=== PATIENT | male | born 1985 | race Caucasian/White ===

== ENCOUNTER → 2017-01-03 | Outpatient (CLI) | payer OTHER ==
[~2017-01-03] VITALS: Ht 190.5 cm; Wt 74.8 kg
[~2017-01-03] MED LIST: ASPCH81X PO; CETI10TA10 PO; CITA10TA8 PO; ESOM20CA PO; MOXIFLOXACIN; MULTTAB58 PO; ONDA8TAB6 PO; RIZA5TAB10 PO
[2017-01-03 15:37] VITALS: BP 119/78; PULSE 89; Ht 190.5 cm; Wt 74.8 kg
== END | disposition home or self-care (01) ==
LOC: C.NEUR 14:40
PROVIDERS: ATTEND Physician Assistant Medical
DX: R53.83 Other fatigue (principal); R06.83 Snoring; R06.81 Apnea, not elsewhere classified

== ENCOUNTER → 2017-01-24 | Outpatient (CLI) | payer OTHER ==
--- NOTE | 2017-01-25 05:48 | PAP/PSG TECHNICIAN REPORT ---
[facility] Radio Television Announcer Polysomnogram Report Study name: None Report date: 01/25/2017 Study date: 01/24/2017 Referring Physician: Gail Odell PA-C Name: LISA WEST Interpreting Physician: Nabil Esparza M.D. Date of : 1985 Radio Television Announcer: CARMITA Anguiano. Sex: Male Age: 31 StudyType: PSG Weight: 165 lbs Height: 31 years, Height 6' 3" Neck Circum:14inches BMI: 20.62 Medications: Amoxicillin 500mg, ASA 81mg, Cyclobenzaprine HCl 5mg, Multi Vitamin/ Fluoride 0.25mg, Ondansetron HCl 8mg, Rizatriptan Benzoate 5mg, Zyrtec 10mg Patient History Study started on room air with no ETCO2 monitoring in room#8. 31 yr old male here tonight for a diagnostic psg. He has a history of cardiomyopathy and mitral valve prolapse/regurgitation status post repair March 2015 and SVT in February 2016s/p an implantable loop recorder. He snores, has witnessed apnea, fatigue, morning headaches and memory disturbance. His ESS=19/20. Neck circ=14inches. Parameters Monitored NPSG: E1-M2, E2-M1, Fp1-M2, Fp2-M1, F3-M2, F4-M2, F4-M1, C3-M2, C4-M2, C4-M1, O1-M2, O2-M2, O2-M1, T3-M2, T4-M1, P3-M2, P4-M1, CHIN1, CHIN2, HR, EKG, Legs, PFLOW, SNOR, FLOW, CFLOW, Tidal Volume, THOR, ABDO, SpO2, PLTH, CPRESS, ETCO2 Wave, ETCO2, pH Sleep Architecture Sleep Stages Time at Lights Off 9:53:31 PM STAGES Time (min.) TST (%) Time at Lights On 5:40:31 AM Wake 38.5 -- Total Recording Time (TRT) 467.00 min. N1 53.5 12 Total Sleep Period (TSP) 452.0 min. N2 207.0 48 Total Sleep Time (TST) 428.5min. N3 91.0 21 Awake Time 38.5 min. REM 77.0 18 Wake after Sleep Onset 23.5 min. Sleep Efficiency (SE) 92 % Sleep Onset Latency (ANTONI) 15.0 min. Number of Stage 1 Shifts None Awakenings 20 Stage Changes 135 Number of REM periods 19 REM 77.0 18 REM Latency 101.0 min. NREM 351.5 82 Body Position Analysis Supine Right Left Side Prone Vertical Total Sleep Time (min.) 199.6 128.3 124.2 252.56 0.0 0.0 Total Sleep Time (%) 41% 30% 29% 59 0% N/A% Total Sleep Time REM (min.) 45.3 12.5 19.2 None 0.0 0.0 Total Sleep Time NREM (min.) 130.6 115.8 105.0 None 0.0 0.0 Intermittent Wake (min.) 23.7 8.5 6.3 None 0.0 0.0 Total Sleep Period (%) 42% None None None None None Arousals Myoclonus (PLM) * Events Count Index Events Count Index Spontaneous 33 5 Events Awake (PLMW) 64 99.7 Respiratory 9 1.4 Events Asleep w/ Arousal (PLMA) 21 2.9 PLM 21 3 Events Asleep w/o Arousal (PLMS) 263 36.8 Snoring 17 2 Total Asleep 284 39.8 Total 80 11 Total 348 45 Respiratory Analysis * CA OA MA CH H RERA Total Count 0 1 0 0 10 3 11 Index 0.0 0.1 0.0 0 1.4 0 2.0 Mean Duration 0.0 23.5 0.0 0.00 25.2 26.4 25.3 Longest Duration 0.0 23.5 0.0 0.00 0.0 33.7 38.1 Respiratory Event Summary Total Supine ~Supine Right Left Prone REM NREM Apneas Count 1 1 0 0 0 N/A 0 1 Index 0.1 0 0 0.0 0.0 N/A 0 0 Hypopneas (4% Desat) Count 10 9 1 1 0 N/A 0 10 Index 1.4 3.1 0 0.5 0.0 N/A 0.0 1.7 Apneas & All Hypopneas Count 11 10 1 1 0 N/A 0 11 Index 1.5 3 0 0 0 N/A 0.0 1.9 Respiratory Events (Incident Handler+All Hyp+RERA) Count 11 11 3 3 0 N/A 0 11 Index 2.0 4 1 1.4 0.0 N/A 0.8 2.2 Respiratory Related Arousal Count 9 11 2 2 0 N/A 1 9 Index 1.4 3 0 1 0 N/A 1 2 Snoring Analysis Supine Right Left Prone REM NREM Total Snore duration 10.3 min Snores count 74 46 120 N/A 31 209 240 Snore mean duration 2.6 Sec Snores index 25 22 58 N/A 24.2 35.7 33.6 TST with snoring (%) 2.4% Desaturation Event Summary: Minimum %SpO2 Event Count Mean/Min/Max Duration(sec.) Desaturation Index % Time In Bed > 90 6 40.5 / 23.0 / 60.0 0.8 97.0 86 - 90 3 21.8 / 10.3 / 29.3 14.6 2.7 81 - 85 1 25.8 / 25.8 / 25.8 45.9 0.3 76 - 80 0 N/A 0.0 0.0 71 - 75 0 N/A 0.0 0.0 66 - 70 0 N/A 0.0 0.0 61 - 65 0 N/A 0.0 0.0 56 - 60 0 N/A 0.0 0.0 51 - 55 0 N/A 0.0 0.0 < 50 0 N/A 0.0 0.0 Total REM NREM Awake <50% 0.0 min. 0.0 min. 0.0 min. 0.0 min. 51 - 60% 0.0 min. 0.0 min. 0.0 min. 0.0 min. 61 - 70% 0.0 min. 0.0 min. 0.0 min. 0.0 min. 71 - 80% 0.1 min. 0.0 min. 0.1 min. 0.0 min. 81 - 90% 13.6 min. 1.9 min. 11.5 min. 0.3 min. 91 - 100% 446.9 min. 72.0 min. 338.6 min. 36.4 min. Average 95 95 95 95 Minimum SpO2 76 83 76 85 Desaturation Event Index 1.2 1.6 1.2 1.6 # Desat. Events below 89% 4 2 2 N/A Time(%) with Saturation below 89% 1.7 0.4 1.2 0.1 Time(min.) with Saturation below 89% 7.7 1.9 5.6 0.2 Time (mins) REM (mins) NREM (mins) % of TST SpO2 Below 90% 4 2 N2 2.0 SpO2 Below 88% 1 0 0 1 Heart Rate Analysis Min (bpm) Max (bpm) Average (bpm) Awake 61 127 73 NREM 57 127 74 REM 56 255 72 Overall 56 255 73 Supplemental O2 Values Minimum O2 level: None Value Start Time End Time Radio Television Announcer Comments Mr. West slept in the right, left and supine positions. No cardiac arrhythmia noted. PLM's were noted. No bruxism noted. Snoring was noted and scored as a 1 on a scale of 1 through 5. (0=no snoring, 5=snoring loud enough to be heard through a closed door or down the [address] way). He did not use the restroom during the night. He stated that he slept a little worse than usual. The final report will be interpreted and signed by a sleep physician. The completed physician report will then be placed in the patient medical record. Therapy (cm H2O) 0 TIB (min.) 467.0 TST (min.) 428.5 Sleep Onset (min.) 15.0 REM Onset From Sleep (min.) 101.0 Sleep Efficiency % 92 Wakefulness (%) 8 Wakefulness (min.) 38.5 NREM 1 (%) 12 NREM 1 (min.) 53.5 NREM 2 (%) 48 NREM 2 (min.) 207.0 NREM 3 (%) 21 NREM 3 (min.) 91.0 REM (%) 18 REM (min.) 77.0 # Arousals 80 Arousal Index 11 # Snore 240 Snore Index 33.6 AHI 1.5 AHI Supine 3 AHI Non-Supine 0 NREM AHI 1.9 REM AHI 0.0 RDI 2.0 # Obstructive Apnea 1 # Central Apnea 0 # Mixed Apnea 0 # Hypopneas 10 RERAs 3 Total Respiratory Events 14 Time Below SpO2 89% (min.) 7.4 Mean NREM SpO2 (%) 95 Mean REM SpO2 (%) 95 Mean Sleep SpO2 (%) 95 Min NREM SpO2 (%) 76 Min REM SpO2 (%) 83 Position Supine (min.) 199.6 Position Non-supine (min.) 252.6 LM Index Sleep 39.8 LM Index NREM 39.3 LM Index REM 42.1 Mean Heart Rate (bpm) 73 Min Heart Rate (bpm) 56
--- NOTE | 2017-01-25 11:18 | POLYSOMNOGRAPH REPORT ---
CLINICAL DATA: A 31-year-old male with BMI of 20.6, referred by Gail Odell, Dr. Trevino, dr Hamlet Rothman, and myself for a diagnostic sleep study. He has a history of cardiomyopathy, mitral valve prolapse and regurgitation status post repair and SVT. He snores and has witnessed apnea, fatigue, morning headaches, and memory disturbance. His [place] sleepiness score was 19/24. SLEEP ARCHITECTURE: Total sleep period was 452 minutes. Total sleep time was 428.5 minutes divided between 351.5 minutes of non-REM sleep and 77 minutes of REM sleep. Sleep onset latency was 15 minutes. REM latency was 101 minutes. Sleep efficiency was 92%. Wake after sleep onset was 23.5 minutes. Sleep consisted of stage N1 12%, stage N2 48%, stage N3 21%, and REM 18%. AROUSAL DATA: Eight arousals were recorded for an index of 11 per hour. PERIODIC LIMB MOVEMENTS DATA: Moderately elevated limb movements during sleep were noted. There were 284 limb movements during sleep were noted for an index of 39.8 per hour with arousal index of 2.9 per hour. RESPIRATORY DATA: There was no evidence of clinically significant sleep apnea seen. The AHI was 1.5. There was 1 obstructive apneic episode, 23.5 seconds in duration. There were 10 hypopneic episodes with mean duration of 25.2 seconds. OXIMETRY DATA: Transient nocturnal hypoxemia was seen. Oxygen kamar was 76% during non-REM sleep and mean saturation was 95%. Time below 88% was 1 minute. ELECTROCARDIOGRAM: Heart rates ranged from 57-127 beats per minute. No arrhythmias were noted. MULTIGRAPH OPERATOR'S COMMENTS: The patient slept in the right, left, and supine positions. Snoring was mild, rated 1 on a scale of 1-5. IMPRESSION: No evidence of clinically significant sleep apnea/hypopnea or nocturnal hypoxemia. The patient did have moderately elevated limb movements during sleep with only occasional arousal. RECOMMENDATIONS: The patient should continue to practice good sleep hygiene. There is no evidence that CPAP or an oral appliance would be of benefit. LIBORIO
== END | disposition home or self-care (01) ==
LOC: C.NEUR 21:00
PROVIDERS: ATTEND Physician Assistant Medical
DX: R53.83 Other fatigue (principal); R06.83 Snoring; R06.81 Apnea, not elsewhere classified

== ENCOUNTER → 2017-02-13 | Outpatient (CLI) | payer OTHER | END | disposition home or self-care (01) | LOC: C.LAB 08:14 | PROVIDERS: ATTEND Physician Assistant Medical | DX: G47.61 Periodic limb movement disorder (principal) ==

== ENCOUNTER 2025-02-12 18:50 | Inpatient (IN) ==
[2025-02-12] MEDS: KETOROLAC TROMETHAMINE 15 MG/ML VIAL IV STA (19:17)
[2025-02-12] MEDS: ONDANSETRON INJ 2 MG/ML 2 ML VIAL IV STA (19:17)
[2025-02-12] MEDS: SODIUM CHLORIDE 0.9% 500 ML IV STA (19:17)
[2025-02-12 19:28] LABS: Hematocrit (blood only) 47.3 % (42.0-52.0); Hemoglobin 15.5 g/dl (14.0-18.0); Immature Granulocytes # (auto) 0.09 K/uL (0.01-0.20); Immature Granulocytes % (auto) 0.7 %; Mean Corpuscular Hemoglobin 28.9 pg (25.0-34.0); Mean Corpuscular Volume 88.1 fL (80.0-100.0); Platelet Count 213 K/uL (130-400); RDW Standard Deviation 43.2 fL (36.4-46.3); Red Blood Count 5.37 M/uL (4.70-6.10); White Blood Count 12.39 K/ul (4.8-10.8)
[2025-02-12 19:45] LABS: Alanine Aminotransferase 58.0 U/L (7-52); Albumin Globulin Ratio 1.3 (0.9-2); Albumin Level 4.1 gm/dl (3.4-5.0); Alkaline Phosphatase 65.0 U/L (34-104); Anion Gap 5.0 (3-11); Bilirubin,Total 0.5 mg/dl (0.2-1.0); Blood Urea Nitrogen 16.0 mg/dl (6-23); Calcium 9.2 mg/dl (8.6-10.3); Carbon Dioxide 29.0 mmol/L (21-32); Chloride 106.0 mmol/L (98-107); Creatinine Clr Calc Pharmacy 87.4 ml/min; Globulin 3.1 gm/dl (2.5-4.0); Glucose 119.0 mg/dl (70-99(Fasting)); Potassium 4.5 mmol/L (3.5-5.1); Sodium 140.0 mmol/L (136-145); Total Protein 7.2 gm/dl (6.0-8.3)
--- NOTE | 2025-02-12 20:14 | Emergency Department Note ---
Impression & Plan Acute flank pain, Calculi, ureter ED Provider Note CHIEF COMPLAINT: Left flank pain HISTORY OF PRESENTING ILLNESS: Patient is a 39-year-old male who presents to the emergency department today for complaints of left flank pain. He reports onset of 2 days ago and was seen at urgent care yesterday and placed on Flomax and Augmentin. He has taken one dose of each. The pain has continued to worsen and is being seen. He does have a history of kidney stones and reports this feeling similar. He is able to void without any difficulties and denies any urgency, frequency, burning on urination. Patient denies chest pain, sob, breathing difficulties, abdominal pain, headache, fevers/chills, blood in stool or urine, any recent illness, or any recent travel. REVIEW OF SYSTEMS: See HPI for pertinent positives and pertinent negatives. ALLERGIES: See below MEDICATIONS: See below PAST MEDICAL HISTORY: See below PHYSICAL EXAM: VITALS: Vitals are noted on the nurse's note and reviewed by myself. GENERAL: Non toxic, in no acute distress, non-diaphoretic. SKIN: Capillary refill <2 sec. HEART: Regular rate and rhythm without murmurs gallops or rubs. LUNGS: Clear to auscultation bilaterally without wheezes, rales or rhonchi. No retractions or accessory muscle use. ABDOMEN: Positive bowel sounds x 4. Normal tympanic percussion. Soft, nontender to palpation. MUSCULOSKELETAL: No gross musculoskeletal defects. NEURO: Patient was alert and oriented. No focal neurological deficits. DIFFERENTIAL DIAGNOSIS: Differential diagnosis includes renal calculus, pyelonephritis, musculoskeletal pain, ruptured AAA, aortic dissection, diverticulitis, perforated viscus, bowel obstruction, biliary pathology, pancreatitis, PE, pneumonia, pneumothorax, trauma, herpes zoster, malignancy, among others. ED COURSE AND MEDICAL DECISION MAKING: HISTORY FROM INDEPENDENT HISTORIAN: History was provided by the patient. MONITOR: Continuous vehicle monitor technician: Order was placed for continuous vehicle monitor technician. Patient was placed on the vehicle monitor technician and continuous pulse ox. Patient was noted to be in normal sinus rhythm at an initial rate of 70 bpm per my interpretation. INTERPRETATION OF LABS: I interpreted the labs with full lab results as below in the lab section of this note. Laboratory results pertinent to the emergent complaint are discussed in the MDM section below. The patient was advised to follow up with their PCP and/or specialist(s) for further outpatient monitoring and management of any abnormal results. INTERPRETATION OF IMAGING: Imaging studies were interpreted by myself and read by radiology as per the imaging section of this note. The patient was advised to follow up with their PCP and/or specialist(s) for further outpatient management of any non-emergent abnormal findings. CHRONIC MEDICAL/SOCIAL CONDITIONS AFFECTING CARE: No social concerns were identified as barriers to patients care. ESCALATION OF CARE CONSIDERED: I considered admission on this patient due to uncontrolled pain in the outpatient setting. CONSULTATIONS: I consulted with Dr. Knapp from urology who will plan to see the patient tomorrow morning. I also consulted with Dr. Gupta for admission to the hospital. Patient was accepted. SUMMARY: I examined the patient for complaints of sided flank pain. A physical exam and history were performed. Nursing notes, EMR, and medication list were personally reviewed. CBC showed a mild leukocytosis with a white blood cell count of 12.39. No anemia or thrombocytopenia. CMP showed no emergent findings. Urinalysis was negative for leukocytes, nitrates, bacteria. CT of the abdomen and pelvis showed an obstructing calculus in the proximal left ureter with hydronephrosis and hydroureter her measuring 4.3 mm. Patient was given Toradol and Zofran with improvement in pain and discomfort. He was later given morphine 2 mg with improvement in pain and discomfort. I spoke with Dr. Knapp from urology who plan to see the patient in the morning and I also consulted with Dr. Gupta who accepts the patient for admission. The patient is to have close outpatient follow-up with a recheck of their symptoms. To return to the ER sooner for any significantly changing or worsening symptoms. The patient was educated on the treatment plan and the discharge instructions. The patient was discharged home in stable condition and verbalized understanding of all discharge instructions and treatment plan. DIAGNOSIS: Obstructing calculus, left flank pain TREATMENT PLAN/DISCHARGE INSTRUCTIONS: Admit to hospitalist services. The chart was completed utilizing [employer] Speech voice recognition software.Grammatical errors, random word insertions, pronoun errors, and incomplete sentences are an occasional consequence of this system due to software limitations, ambient noise, and hardware issues.Any formal questions or concerns about the content, text, or information contained within the body of this dictation should be directly addressed to the physician for clarification. Past Med/Surg History Problem List (Updated 02/12/25 @ 22:31 by MARGARET Toth) Calculi, ureter (Acute) Acute flank pain (Acute) Flank pain Calculi, ureter Scarlet fever Insomnia Cervical facet joint syndrome Myofascial pain Migraine Cervicogenic headache Cervicalgia Ectopic atrial rhythm Status post mitral valve repair Cardiomyopathy Mitral valve prolapse Status post placement of implantable loop recorder Medical History GERD (gastroesophageal reflux disease) Gastroparesis Social History Smoking Status: Never smoker Hx Alcohol Use: Yes Hx Substance Use: No Preferred Language: [place] Communication Ability: Effective Visual Impairment: No Limitations Hearing Ability: Normal Geothermal Powerplant Supervisor Required: No Beliefs That Will Affect Care: None Current Living Situation: Significant Other current occupational status: employed current occupation: works for [employer] Feels Safe at Home: Yes Assistive Devices: None Allergies Allergies Allergy/AdvReac Type Severity Reaction Status Date / Time house dust Allergy Severe asthma Verified 02/12/25 20:08 attack chlorhexidine Allergy Intermediate hives/blist Verified 02/12/25 20:08 ers/rash ragweed pollen Allergy Intermediate itchy Verified 02/12/25 20:08 eyes, sneezing, congestion, asthma metoclopramide AdvReac Intermediate Tremors-arms Verified 02/12/25 20:08 & hands Home Meds Home Medications Medication Instructions Recorded Confirmed cetirizine 10 mg capsule (Zyrtec) 10 mg PO DAILY PRN Congestion 12/10/20 02/12/25 esomeprazole magnesium 20 mg 20 mg PO DAILY 12/10/20 02/12/25 capsule,delayed release (Nexium) rizatriptan 5 mg tablet 5 mg PO DIRECTED PRN Migraine 12/10/20 02/12/25 Headache buspirone 5 mg tablet 7.5 mg PO BID 09/25/23 02/12/25 tadalafil 5 mg tablet 5 mg PO DAILY PRN Sexual Activity 09/25/23 02/12/25 adalimumab-adaz 40 mg/0.4 mL 40 mg subcut WK 02/12/25 02/12/25 subcutaneous pen injector (Hyrimoz(CF) Pen) amoxicillin 875 mg-potassium 1 tab PO BID 02/12/25 02/12/25 clavulanate 125 mg tablet dapsone 5 % topical gel 1 applic topical DAILY 02/12/25 02/12/25 dicyclomine 10 mg capsule 10 mg PO TID 02/12/25 02/12/25 finasteride 1 mg tablet 1 mg PO QAM 02/12/25 02/12/25 galcanezumab-gnlm 120 mg/mL 120 mg subcut MONTHLY 02/12/25 02/12/25 subcutaneous pen injector (Emgality Pen) methylphenidate HCl 30 mg biphasic 30 mg PO QAM 02/12/25 02/12/25 50-50 capsule,extended release multivitamin,tx-minerals 1 tab PO DAILY 02/12/25 02/12/25 prednisone 20 mg tablet 0 mg PO DAILY PRN CLUSTER HEADACHES 02/12/25 02/12/25 tamsulosin 0.4 mg capsule 0.4 mg PO QAM 02/12/25 02/12/25 verapamil 80 mg tablet 80 mg PO TID 02/12/25 02/12/25 Previous Rx's Medication Instructions Recorded aspirin 81 mg tablet,delayed 81 mg PO DAILY #90 tabs 02/25/19 release (Adult Low Dose Aspirin) ondansetron HCl 8 mg tablet 8 mg PO TID PRN nausea and 02/25/19 vomiting #10 tabs Results & Data (ED) Vital Signs Vital Signs - 24 hr 02/12/25 19:05 02/12/25 19:13 02/12/25 21:00 Temperature 36.6 C Temperature Source Temporal Artery Scan Pulse Rate 70 Respiratory Rate 18 16 Respiratory Effort / Characteristics Non-Labored Spontaneous Respiratory Depth Normal Blood Pressure 151/92 H Blood Pressure [Right Arm] 150/87 H Blood Pressure Mean 111 Blood Pressure Mean [Right Arm] 108 Pulse Oximetry 96 98 Oxygen Delivery Method Room Air Room Air Sepsis Recent Fever Within 48 Hours No Sepsis New/Unexplained Change in Mental Status No Sepsis Action Taken by Nursing No Action Required Laboratory Data 02/12/25 19:15 02/12/25 19:15 Lab Results 02/12/25 02/12/25 Range/Units 19:15 20:54 WBC 12.39 H (4.8-10.8) K/ul RBC 5.37 (4.70-6.10) M/uL Hgb 15.5 (14.0-18.0) g/dl Hct 47.3 (42.0-52.0) % MCV 88.1 (80.0-100.0) fL MCH 28.9 (25.0-34.0) pg MCHC 32.8 (32.0-36.0) g/dL RDW Std Deviation 43.2 (36.4-46.3) fL RDW Coeff of Marichuy 13.4 (11.5-14.5) % Plt Count 213 (130-400) K/uL MPV 10.2 (9.4-12.4) fL Immature Gran % (Auto) 0.7 % Neut % (Auto) 79.5 % Lymph % (Auto) 13.4 % [place] % (Auto) 6.2 % Eos % (Auto) 0.0 % Baso % (Auto) 0.2 % Neut # (Auto) 9.85 H (1.40-6.50) K/uL Lymph # (Auto) 1.66 (1.20-3.40) K/uL [place] # (Auto) 0.77 H (0.11-0.59) K/uL Eos # (Auto) 0.00 (0.00-0.50) K/uL Baso # (Auto) 0.02 (0.00-0.20) K/uL Immature Gran # (Auto) 0.09 (0.01-0.20) K/uL Sodium 140 (136-145) mmol/L Potassium 4.5 (3.5-5.1) mmol/L Chloride 106 (98-107) mmol/L Carbon Dioxide 29 (21-32) mmol/L Anion Gap 5 (3-11) BUN 16 (6-23) mg/dl Creatinine 1.38 (0.6-1.4) mg/dl Est Cr Clr Drug Dosing 87.4 ml/min eGFR 66.30 BUN/Creatinine Ratio 11.6 (10-20) Glucose 119 H (70-99(Fasting)) mg/dl Calcium 9.2 (8.6-10.3) mg/dl Total Bilirubin 0.5 (0.2-1.0) mg/dl AST 37 (13-39) U/L ALT 58 H (7-52) U/L Alkaline Phosphatase 65 (34-104) U/L Total Protein 7.2 (6.0-8.3) gm/dl Albumin 4.1 (3.4-5.0) gm/dl Globulin 3.1 (2.5-4.0) gm/dl Albumin/Globulin Ratio 1.3 (0.9-2) Urine Color Yellow Urine Appearance Clear (Clear) Urine pH 6.0 (4.5-7.5) Ur Specific [place] 1.041 H (1.000-1.030) Urine Protein 1+ H (Negative) Urine Glucose (UA) Negative (Negative) Urine Ketones Trace H (Negative) Urine Blood 3+ H (Negative) Urine Nitrite Negative (Negative) Urine Bilirubin Negative (Negative) Urine Urobilinogen Positive H (Negative) Ur Leukocyte Esterase Negative (Negative) Urine WBC (Auto) 0-5 (0-5) /hpf Urine RBC (Auto) >20 H (0-2) /hpf U Hyaline Cast (Auto) 0-2 (0-2) /lpf U Epithel Cells (Auto) 0-2 (0-2) /hpf Urine Bacteria (Auto) None Seen (None Seen) Urine Comment Administered Medications Discontinued Medications Sodium Chloride (Nss) 500 mls @ 999 mls/hr IV .Q31M STA Stop: 02/12/25 19:43 Last Admin: 02/12/25 19:17 Dose: 999 mls/hr Documented By: URI Ioversol (Optiray 320 100ml) 93 ml IV ONCE ONE Stop: 02/12/25 20:41 Last Admin: 02/12/25 20:40 Dose: 93 ml Documented By: AUGUSTUS Ketorolac Tromethamine (Ketorolac Tromethamine 15 Mg/Ml Vial) 15 mg IV ONE STA Stop: 02/12/25 19:14 Last Admin: 02/12/25 19:17 Dose: 15 mg Documented By: URI Ondansetron HCl (Ondansetron Inj 2 Mg/Ml 2 Ml Vial) 4 mg IV NOW STA Stop: 02/12/25 19:14 Last Admin: 02/12/25 19:17 Dose: 4 mg Documented By: URI Imaging Data Radiologist's Impression: Abdomen/Pelvis CT 02/12/25 20:02 Exam(s): CT ABDOMEN + PELVIS With Contrast IV Amt: 93cc optiray 320 EXAM: CT Abdomen and Pelvis With Intravenous Contrast CLINICAL HISTORY: left flank pain. TECHNIQUE: Axial computed tomography images of the abdomen and pelvis with intravenous contrast. CTDI is 14.85 mGy and DLP is 754.35 mGy-cm. Automated exposure control was utilized for the study. A dose lowering technique was utilized adhering to the principles of ALARA. CONTRAST: Patient received 93cc optiray 320 of IV contrast COMPARISON: 05/14/2008 FINDINGS: Lung bases: Unremarkable. No mass. No consolidation. ABDOMEN: Liver: Unremarkable. No mass. Gallbladder and bile ducts: Unremarkable. No calcified stones. No ductal dilation. Pancreas: Unremarkable. No mass. No ductal dilation. Spleen: Unremarkable. No splenomegaly. Adrenals: Unremarkable. No mass. Kidneys and ureters: 1.7 x 1.7 cm cyst upper pole of the left kidney. Punctate nonobstructing calculus of the left kidney. No obstructive uropathy. Mild left hydronephrosis and hydroureter to the level of a 4 x 4.3 mm obstructing calculus in the proximal left ureter. No other calculus. Right kidney and ureter are normal appearance. Stomach and bowel: No obstruction or ileus. Moderate stool throughout the colon. No evidence for diverticulitis. PELVIS: Appendix: No findings to suggest acute appendicitis. Bladder: Unremarkable. No mass. Reproductive: Unremarkable as visualized. ABDOMEN and PELVIS: Intraperitoneal space: No free air. No free fluid. Bones/joints: No acute fracture. Soft tissues: Unremarkable. Vasculature: Unremarkable. No abdominal aortic aneurysm. Lymph nodes: Unremarkable. No enlarged lymph nodes. IMPRESSION: Obstructing calculus proximal left ureter with associated left hydronephrosis and hydroureter. Electronically signed by: Ramses Sapp M.D. 02/12/25 21:51 PM Discharge Plan Visit Data Chief Complaint: Flank Pain Stated Complaint: LT FLANK PAIN VOMITING KIDNEY STONE ED Provider: Bhupendra Hutson ED Midlevel Provider: Iman Montes De Oca Discharge Problem: Acute flank pain, Calculi, ureter Patient Disposition: Admitted As Inpatient Forms Stand Alone Forms: [facility] Prescriptions Prescriptions: No Action buspirone 5 mg tablet 7.5 mg PO BID tadalafil 5 mg tablet 5 mg PO DAILY PRN (Reason: Sexual Activity) rizatriptan 5 mg tablet 5 mg PO DIRECTED PRN (Reason: Migraine Headache) Rx Instructions: do not exceed 6 doses per 24 hrs esomeprazole magnesium [Nexium] 20 mg capsule,delayed release(DR/EC) 20 mg PO DAILY Zyrtec 10 mg capsule 10 mg PO DAILY PRN (Reason: Congestion) aspirin [Adult Low Dose Aspirin] 81 mg tablet,delayed release (DR/EC) 81 mg PO DAILY Qty: 90 3RF ondansetron HCl 8 mg tablet 8 mg PO TID PRN (Reason: nausea and vomiting) Qty: 10 0RF prednisone 20 mg Tablet 0 mg PO DAILY PRN (Reason: CLUSTER HEADACHES) Rx Instructions: TAKE 60 MG AT ONSET OF HEADACHE, THEN 40 MG X 2 DAYS, THEN 20 MG X 2 DAYS. STARTED 02/11/25 tamsulosin 0.4 mg capsule 0.4 mg PO QAM verapamil 80 mg tablet 80 mg PO TID dicyclomine 10 mg capsule 10 mg PO TID finasteride 1 mg tablet 1 mg PO QAM amoxicillin-pot clavulanate 875-125 mg tablet 1 tab PO BID Rx Instructions: STARTED 02/11/25 FOR 10 DAYS Therapeutic-M Tablet 1 tab PO DAILY methylphenidate HCl 30 mg capsule,ER biphasic 50-50 30 mg PO QAM dapsone 5 % gel 1 applic TOPICAL DAILY Emgality Pen 120 mg/mL pen injector 120 mg SUBCUT MONTHLY Rx Instructions: TAKES ON THE OF THE MONTH. adalimumab-adaz [Hyrimoz(CF) Pen] 40 mg/0.4 mL pen injector 40 mg SUBCUT WK Rx Instructions: SUNDAYS Referrals Referrals: Carlos Trevino DO [Primary Care Provider] -
[2025-02-12] MEDS: OPTIRAY 320 100ml IV ONE (20:40)
[2025-02-12 21:51] LABS: Appearance Urine Clear (Clear); Bacteria Urine Automated None Seen (None Seen); Cast Urine Automated 0-2 /lpf (0-2); Epithelial Cell Urine Auto 0-2 /hpf (0-2); Glucose Urine UA Negative (Negative); RBC Urine Automated >20 /hpf (0-2); WBC Urine Automated 0-5 /hpf (0-5)
--- NOTE | 2025-02-12 21:52 | CT Scan Report ---
Exam(s): CT ABDOMEN + PELVIS With Contrast IV Amt: 93cc optiray 320 EXAM: CT Abdomen and Pelvis With Intravenous Contrast CLINICAL HISTORY: left flank pain. TECHNIQUE: Axial computed tomography images of the abdomen and pelvis with intravenous contrast. CTDI is 14.85 mGy and DLP is 754.35 mGy-cm. Automated exposure control was utilized for the study. A dose lowering technique was utilized adhering to the principles of ALARA. CONTRAST: Patient received 93cc optiray 320 of IV contrast COMPARISON: 05/14/2008 FINDINGS: Lung bases: Unremarkable. No mass. No consolidation. ABDOMEN: Liver: Unremarkable. No mass. Gallbladder and bile ducts: Unremarkable. No calcified stones. No ductal dilation. Pancreas: Unremarkable. No mass. No ductal dilation. Spleen: Unremarkable. No splenomegaly. Adrenals: Unremarkable. No mass. Kidneys and ureters: 1.7 x 1.7 cm cyst upper pole of the left kidney. Punctate nonobstructing calculus of the left kidney. No obstructive uropathy. Mild left hydronephrosis and hydroureter to the level of a 4 x 4.3 mm obstructing calculus in the proximal left ureter. No other calculus. Right kidney and ureter are normal appearance. Stomach and bowel: No obstruction or ileus. Moderate stool throughout the colon. No evidence for diverticulitis. PELVIS: Appendix: No findings to suggest acute appendicitis. Bladder: Unremarkable. No mass. Reproductive: Unremarkable as visualized. ABDOMEN and PELVIS: Intraperitoneal space: No free air. No free fluid. Bones/joints: No acute fracture. Soft tissues: Unremarkable. Vasculature: Unremarkable. No abdominal aortic aneurysm. Lymph nodes: Unremarkable. No enlarged lymph nodes. IMPRESSION: Obstructing calculus proximal left ureter with associated left hydronephrosis and hydroureter. Electronically signed by: Ramses Sapp M.D. 02/12/25 21:51 PM
[2025-02-12] MEDS: MoRPHine SULFATE 2 MG/ML CARP IV STA (22:34)
[2025-02-13] MEDS ORDERED: ONDANSETRON INJ 2 MG/ML 2 ML VIAL IV PRN ×2 (00:25→15:38)
[2025-02-13] MEDS ORDERED: RIZATRIPTAN BENZOATE 10 MG TAB PO PRN (00:25)
[2025-02-13] MEDS ORDERED: POLYETHYLENE (MIRALAX) 17 GM PACK PO PRN (00:25)
[2025-02-13] MEDS: SODIUM CHLORIDE 0.9% 1,000 ML IV SCH (00:55)
[2025-02-13] MEDS: HYDROmorphone INJ 0.5 MG/0.5 ML SYR IV PRN ×2 (00:56→18:47)
--- NOTE | 2025-02-13 01:40 | History & Physical Report ---
Date of Service February 12, 2025 Assessment & Plan (1) Left renal stone: Plan: 39-year-old male with past medical history significant for deviated nasal septum, history of mitral valve prolapse, gastroparesis, GERD, migraine, chronic cluster headaches, anxiety presents with left renal colic. Patient noticed left flank pain since last Monday. Pain is radiating to his groin region. Patient was seen by urgent care on 02/11/2025 and was given prophylactic antibiotics and Flomax and also renal ultrasound was done. Augmentin was given for sinusitis. Renal ultrasound was done and seems showed kidney stones and advised to follow- up with PCP. As the pain was not getting better and today it was 10/10 in severity associated with nausea which prompted him to come to the ER. Denies any fevers. Having hematuria. Has some discomfort while micturating. Normal bowel movements. Denies any chest pain or shortness of breath. No headache. No runny nose or sore throat. Currently resting comfortably and hemodynamically stable. Left renal calculi Ongoing left flank pain CT abdomen pelvis showing obstructing calculus proximal left ureter with associated left hydronephrosis and hydroureter UA negative for UTI Hemodynamically stable Pain control IV fluids N.p.o. Flomax Urine straining Urology consult in a.m. History of migraines History of cluster headaches Continue home medications History of hidradenitis suppurativa On adalimumab GERD on omeprazole History of mitral valve prolapse S/p repair On aspirin Anxiety On buspirone DVT prophylaxis SCDs Disposition Medical floor Full code. History of Present Illness Chief Complaint: Left renal colic Primary Care Provider: Carlos Trevino DO 39-year-old male with past medical history significant for deviated nasal septum, history of mitral valve prolapse, gastroparesis, GERD, migraine, chronic cluster headaches, anxiety presents with left renal colic. Patient noticed left flank pain since last Monday. Pain is radiating to his groin region. Patient was seen by urgent care on 02/11/2025 and was given prophylactic antibiotics and Flomax and also renal ultrasound was done. Augmentin was given for sinusitis. Renal ultrasound was done and seems showed kidney stones and advised to follow- up with PCP. As the pain was not getting better and today it was 10/10 in severity associated with nausea which prompted him to come to the ER. Denies any fevers. Having hematuria. Has some discomfort while micturating. Normal bowel movements. Denies any chest pain or shortness of breath. No headache. No runny nose or sore throat. Currently resting comfortably and hemodynamically stable. Past medical history. As mentioned above. Past surgical history. Colonoscopy with biopsy. EGD. Appendectomy. Repair of nasal stenosis. Revision of spermatic cord veins. Social history. No smoking. Alcohol occasionally. No drug use. Family history. Father has asthma. Hypertension. Mother has colitis. Migraine. Allergies Allergy/AdvReac Type Severity Reaction Status Date / Time house dust Allergy Severe asthma Verified 02/12/25 20:08 attack chlorhexidine Allergy Intermediate hives/blist Verified 02/12/25 20:08 ers/rash ragweed pollen Allergy Intermediate itchy Verified 02/12/25 20:08 eyes, sneezing, congestion, asthma metoclopramide AdvReac Intermediate Tremors-arms Verified 02/12/25 20:08 & hands Home Medications Medication Instructions Recorded Confirmed Type aspirin 81 mg tablet,delayed 81 mg PO DAILY #90 tabs 02/25/19 02/12/25 Rx release (Adult Low Dose Aspirin) ondansetron HCl 8 mg tablet 8 mg PO TID PRN nausea and 02/25/19 02/12/25 Rx vomiting #10 tabs cetirizine 10 mg capsule (Zyrtec) 10 mg PO DAILY PRN Congestion 12/10/20 02/12/25 History esomeprazole magnesium 20 mg 20 mg PO DAILY 12/10/20 02/12/25 History capsule,delayed release (Nexium) rizatriptan 5 mg tablet 5 mg PO DIRECTED PRN Migraine 12/10/20 02/12/25 History Headache buspirone 5 mg tablet 7.5 mg PO BID 09/25/23 02/12/25 History tadalafil 5 mg tablet 5 mg PO DAILY PRN Sexual Activity 09/25/23 02/12/25 Hist ory adalimumab-adaz 40 mg/0.4 mL 40 mg subcut WK 02/12/25 02/12/25 History subcutaneous pen injector (Hyrimoz(CF) Pen) amoxicillin 875 mg-potassium 1 tab PO BID 02/12/25 02/12/25 History clavulanate 125 mg tablet dapsone 5 % topical gel 1 applic topical DAILY 02/12/25 02/12/25 History dicyclomine 10 mg capsule 10 mg PO TID 02/12/25 02/12/25 History finasteride 1 mg tablet 1 mg PO QAM 02/12/25 02/12/25 History galcanezumab-gnlm 120 mg/mL 120 mg subcut MONTHLY 02/12/25 02/12/25 History subcutaneous pen injector (Emgality Pen) methylphenidate HCl 30 mg biphasic 30 mg PO QAM 02/12/25 02/12/25 History 50-50 capsule,extended release multivitamin,tx-minerals 1 tab PO DAILY 02/12/25 02/12/25 History prednisone 20 mg tablet 0 mg PO DAILY PRN CLUSTER HEADACHES 02/12/25 02/12/25 History tamsulosin 0.4 mg capsule 0.4 mg PO QAM 02/12/25 02/12/25 History verapamil 80 mg tablet 80 mg PO TID 02/12/25 02/12/25 History Past Med/Surg History Problem List (Updated 02/13/25 @ 01:42 by Fran Whitaker MD) Left renal stone Calculi, ureter (Acute) Acute flank pain (Acute) Flank pain Calculi, ureter Scarlet fever Insomnia Cervical facet joint syndrome Myofascial pain Migraine Cervicogenic headache Cervicalgia Ectopic atrial rhythm Status post mitral valve repair Cardiomyopathy Mitral valve prolapse Status post placement of implantable loop recorder Medical History GERD (gastroesophageal reflux disease) Gastroparesis Social History Smoking Status: Never smoker Second Hand Exposure: No; Do You Dip or Chew Tobacco: No; Tobacco Cessation Education Requested by Patient: No Hx Alcohol Use: No Hx Substance Use: No Preferred Language: Tamaz[place] Communication Ability: Effective Visual Impairment: No Limitations Hearing Ability: Normal Second Hand Required: No Beliefs That Will Affect Care: None Current Living Situation: Alone current occupational status: employed current occupation: works for [employer] Other Information That Helps Us Care for You: No Feels Safe at Home: Yes Safety Concerns: Feels Safe At This Time Assistive Devices: None Review of Systems Review of Systems: All systems reviewed & are unremarkable except as noted in HPI & below Physical Exam Physical Exam: General- Not in distress Head- atraumatic Eyes- PERRL. ENT- oropharynx clear Neck- supple, no JVD. Lungs- clear to auscultation no wheezing or crackles Heart- regular rhythm; no murmur, no gallop. Abdomen- normal bowel sounds, soft, nontender, no distension Extremities- no pretibial edema, no erythema seen Neuro- alert, oriented PERRL, no facial palsy; no dysarthria; moves extremities Results & Data Results & Data Vital Signs (Past 12 Hours) Vital Signs Temp Pulse Resp BP BP Pulse Ox O2 Del Method 02/12/25 21:00 16 150/87 H 98 02/12/25 19:13 Room Air 02/12/25 19:05 36.6 C 70 18 151/92 H 96 Room Air Diagnostic Findings Laboratory Results WBC 12.39 K/ul (4.8-10.8) H 02/12/25 19:15 RBC 5.37 M/uL (4.70-6.10) 02/12/25 19:15 Hgb 15.5 g/dl (14.0-18.0) 02/12/25 19:15 Hct 47.3 % (42.0-52.0) 02/12/25 19:15 MCV 88.1 fL (80.0-100.0) 02/12/25 19:15 MCH 28.9 pg (25.0-34.0) 02/12/25 19:15 MCHC 32.8 g/dL (32.0-36.0) 02/12/25 19:15 RDW Std Deviation 43.2 fL (36.4-46.3) 02/12/25 19:15 RDW Coeff of [place] 13.4 % (11.5-14.5) 02/12/25 19:15 Plt Count 213 K/uL (130-400) 02/12/25 19:15 MPV 10.2 fL (9.4-12.4) 02/12/25 19:15 Immature Gran % (Auto) 0.7 % 02/12/25 19:15 Neut % (Auto) 79.5 % 02/12/25 19:15 Lymph % (Auto) 13.4 % 02/12/25 19:15 [place] % (Auto) 6.2 % 02/12/25 19:15 Eos % (Auto) 0.0 % 02/12/25 19:15 Baso % (Auto) 0.2 % 02/12/25 19:15 Neut # (Auto) 9.85 K/uL (1.40-6.50) H 02/12/25 19:15 Lymph # (Auto) 1.66 K/uL (1.20-3.40) 02/12/25 19:15 [place] # (Auto) 0.77 K/uL (0.11-0.59) H 02/12/25 19:15 Eos # (Auto) 0.00 K/uL (0.00-0.50) 02/12/25 19:15 Baso # (Auto) 0.02 K/uL (0.00-0.20) 02/12/25 19:15 Immature Gran # (Auto) 0.09 K/uL (0.01-0.20) 02/12/25 19:15 Sodium 140 mmol/L (136-145) 02/12/25 19:15 Potassium 4.5 mmol/L (3.5-5.1) 02/12/25 19:15 Chloride 106 mmol/L (98-107) 02/12/25 19:15 Carbon Dioxide 29 mmol/L (21-32) 02/12/25 19:15 Anion Gap 5 (3-11) 02/12/25 19:15 BUN 16 mg/dl (6-23) 02/12/25 19:15 Creatinine 1.38 mg/dl (0.6-1.4) 02/12/25 19:15 Est Cr Clr Drug Dosing 87.4 ml/min 02/12/25 19:15 eGFR 66.30 02/12/25 19:15 BUN/Creatinine Ratio 11.6 (10-20) 02/12/25 19:15 Glucose 119 mg/dl (70-99(Fasting)) H 02/12/25 19:15 Calcium 9.2 mg/dl (8.6-10.3) 02/12/25 19:15 Total Bilirubin 0.5 mg/dl (0.2-1.0) 02/12/25 19:15 AST 37 U/L (13-39) 02/12/25 19:15 ALT 58 U/L (7-52) H 02/12/25 19:15 Alkaline Phosphatase 65 U/L (34-104) 02/12/25 19:15 Total Protein 7.2 gm/dl (6.0-8.3) 02/12/25 19:15 Albumin 4.1 gm/dl (3.4-5.0) 02/12/25 19:15 Globulin 3.1 gm/dl (2.5-4.0) 02/12/25 19:15 Albumin/Globulin Ratio 1.3 (0.9-2) 02/12/25 19:15 Urine Color Yellow 02/12/25 20:54 Urine Appearance Clear (Clear) 02/12/25 20:54 Urine pH 6.0 (4.5-7.5) 02/12/25 20:54 Ur Specific [place] 1.041 (1.000-1.030) H 02/12/25 20:54 Urine Protein 1+ (Negative) H 02/12/25 20:54 Urine Glucose (UA) Negative (Negative) 02/12/25: Urine Ketones Trace (Negative) H 02/12/25 20:54 Urine Blood 3+ (Negative) H 02/12/25 20:54 Urine Nitrite Negative (Negative) 02/12/25: Urine Bilirubin Negative (Negative) 02/12/25 20:54 Urine Urobilinogen Positive (Negative) H 02/12/25 20:54 Ur Leukocyte Esterase Negative (Negative) 02/12/25 20:54 Urine WBC (Auto) 0-5 /hpf (0-5) 02/12/25:54 Urine RBC (Auto) >20 /hpf (0-2) H 02/12/25 20:54 U Hyaline Cast (Auto) 0-2 /lpf (0-2) 02/12/25 20:54 U Epithel Cells (Auto) 0-2 /hpf (0-2) 02/12/25 20:54 Urine Bacteria (Auto) None Seen (None Seen) 02/12/25 20:54 Urine Comment 02/12/25 20:54 Impressions Abdomen/Pelvis CT 02/12/25 20:02 Exam(s): CT ABDOMEN + PELVIS With Contrast IV Amt: 93cc optiray 320 EXAM: CT Abdomen and Pelvis With Intravenous Contrast CLINICAL HISTORY: left flank pain. TECHNIQUE: Axial computed tomography images of the abdomen and pelvis with intravenous contrast. CTDI is 14.85 mGy and DLP is 754.35 mGy-cm. Automated exposure control was utilized for the study. A dose lowering technique was utilized adhering to the principles of ALARA. CONTRAST: Patient received 93cc optiray 320 of IV contrast COMPARISON: 05/14/2008 FINDINGS: Lung bases: Unremarkable. No mass. No consolidation. ABDOMEN: Liver: Unremarkable. No mass. Gallbladder and bile ducts: Unremarkable. No calcified stones. No ductal dilation. Pancreas: Unremarkable. No mass. No ductal dilation. Spleen: Unremarkable. No splenomegaly. Adrenals: Unremarkable. No mass. Kidneys and ureters: 1.7 x 1.7 cm cyst upper pole of the left kidney. Punctate nonobstructing calculus of the left kidney. No obstructive uropathy. Mild left hydronephrosis and hydroureter to the level of a 4 x 4.3 mm obstructing calculus in the proximal left ureter. No other calculus. Right kidney and ureter are normal appearance. Stomach and bowel: No obstruction or ileus. Moderate stool throughout the colon. No evidence for diverticulitis. PELVIS: Appendix: No findings to suggest acute appendicitis. Bladder: Unremarkable. No mass. Reproductive: Unremarkable as visualized. ABDOMEN and PELVIS: Intraperitoneal space: No free air. No free fluid. Bones/joints: No acute fracture. Soft tissues: Unremarkable. Vasculature: Unremarkable. No abdominal aortic aneurysm. Lymph nodes: Unremarkable. No enlarged lymph nodes. IMPRESSION: Obstructing calculus proximal left ureter with associated left hydronephrosis and hydroureter. Electronically signed by: Ramses Sapp M.D. 02/12/25 21:51 PM Code Status & VTE Plan VTE Prophylaxis Plan VTE Prophylaxis will be ordered: Yes
--- NOTE | 2025-02-13 07:19 | Urology Consultation ---
Date of Consultation February 13, 2025 Assessment & Plan (1) Calculi, ureter: Left proximal ureteral calculus with associated hydronephrosis and renal colic Nontoxic but significant pain Discussed different options with him He has previously had intervention but is been several years Will plan for cystoscopy left ureteral stent unless he has substantial improvement or passage of the stone later this morning History of Present Illness Attending Physician: Zoie Hoffman MD History of Present Illness 39-year-old gentleman with a history of kidney stones but no operations in the past 20 years Presents after 2 days of severe left flank pain Initially in urgent care visit followed by an ER visit CT showing a proximal/mid left ureteral calculus with associated hydronephrosis He does not exhibit signs of infection and today his pain is a bit better but still present CT personally reviewed and interpreted White blood cell count 12.3 Creatinine 1.38 Allergies Allergy/AdvReac Type Severity Reaction Status Date / Time house dust Allergy Severe asthma Verified 02/12/25 20:08 attack chlorhexidine Allergy Intermediate hives/blist Verified 02/12/25 20:08 ers/rash ragweed pollen Allergy Intermediate itchy Verified 02/12/25 20:08 eyes, sneezing, congestion, asthma metoclopramide AdvReac Intermediate Tremors-arms Verified 02/12/25 20:08 & hands Home Medications Medication Instructions Recorded Confirmed Type aspirin 81 mg tablet,delayed 81 mg PO DAILY #90 tabs 02/25/19 02/12/25 Rx release (Adult Low Dose Aspirin) ondansetron HCl 8 mg tablet 8 mg PO TID PRN nausea and 02/25/19 02/12/25 Rx vomiting #10 tabs cetirizine 10 mg capsule (Zyrtec) 10 mg PO DAILY PRN Congestion 12/10/20 02/12/25 History esomeprazole magnesium 20 mg 20 mg PO DAILY 12/10/20 02/12/25 History capsule,delayed release (Nexium) rizatriptan 5 mg tablet 5 mg PO DIRECTED PRN Migraine 12/10/20 02/12/25 History Headache buspirone 5 mg tablet 7.5 mg PO BID 09/25/23 02/12/25 History tadalafil 5 mg tablet 5 mg PO DAILY PRN Sexual Activity 09/25/23 02/12/25 History adalimumab-adaz 40 mg/0.4 mL 40 mg subcut WK 02/12/25 02/12/25 History subcutaneous pen injector (Hyrimoz(CF) Pen) amoxicillin 875 mg-potassium 1 tab PO BID 02/12/25 02/12/25 History clavulanate 125 mg tablet dapsone 5 % topical gel 1 applic topical DAILY 02/12/25 02/12/25 History dicyclomine 10 mg capsule 10 mg PO TID 02/12/25 02/12/25 History finasteride 1 mg tablet 1 mg PO QAM 02/12/25 02/12/25 History galcanezumab-gnlm 120 mg/mL 120 mg subcut MONTHLY 02/12/25 02/12/25 History subcutaneous pen injector (Emgality Pen) methylphenidate HCl 30 mg biphasic 30 mg PO QAM 02/12/25 02/12/25 History 50-50 capsule,extended release multivitamin,tx-minerals 1 tab PO DAILY 02/12/25 02/12/25 History prednisone 20 mg tablet 0 mg PO DAILY PRN CLUSTER HEADACHES 02/12/25 02/12/25 History tamsulosin 0.4 mg capsule 0.4 mg PO QAM 02/12/25 02/12/25 History verapamil 80 mg tablet 80 mg PO TID 02/12/25 02/12/25 History Patient History Medical History GERD (gastroesophageal reflux disease) Gastroparesis Social History Smoking Status: Never smoker Second Hand Exposure: No; Do You Dip or Chew Tobacco: No; Tobacco Cessation Education Requested by Patient: No Hx Alcohol Use: No Hx Substance Use: No Preferred Language: [place]otho Communication Ability: Effective Visual Impairment: No Limitations Hearing Ability: Normal 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 Beliefs That Will Affect Care: None Current Living Situation: Alone current occupational status: employed current occupation: works for [employer] Other Information That Helps Us Care for You: No Feels Safe at Home: Yes Safety Concerns: Feels Safe At This Time Assistive Devices: None Physical Exam Constitutional: well developed and well nourished Neck: neck nontender Respiratory: normal respiratory effort; no respiratory distress and does not use accessory muscles Cardiovascular: Rate/Rhythm: regular rate Vessels: radial pulses present Extremities: no edema Gastrointestinal (Abdomen): Inspection/Auscultation: abdomen normal to inspection Percussion/Palpation: abdomen soft; abdomen nontender and no guarding Musculoskeletal: Head/Neck/Chest: normocephalic and head atraumatic Extremities: extremities normal to inspection Skin: no rashes and no lesions Trauma: no evidence of skin trauma Neurologic: awake; not obtunded Speech / Cognition: normal speech Motor/Sensory: no tremor Psychiatric: Orientation: alert and oriented x 3 Genitourinary: no CVA tenderness Lymphatic: no lymphadenopathy Results & Data Vital Signs (Past 12 Hours) Vital Signs Temp Pulse Pulse Resp BP BP Pulse Ox 02/13/25 00:15 02/13/25 00:15 36.5 C 54 L 16 156/87 H 98 02/13/25 00:11 54 L 16 146/88 H 99 02/13/25 00:11 54 L 16 146/88 H 99 02/12/25 23:30 53 L 16 156/98 H 96 02/12/25 21:00 16 150/87 H 98 O2 Del Method 02/13/25 00:15 Room Air 02/13/25 00:15 Room Air 02/13/25 00:11 Room Air 02/13/25 00:11 Room Air 02/12/25 23:30 Room Air 02/12/25 21:00 PG Care Time/CCT Total # of Minutes Spent Total Time Spent with Patient: Total time spent is greater than 50% in coordination of care (as documented) at patient's floor/unit and/or counseling patient: Coding Level of Care Code 88675 IN/OBS CONSULT LVL 3,45M Diagnoses Calculi, ureter N20.1
[2025-02-13] MEDS: ACETAMINOPHEN 325 MG TAB PO PRN (08:05)
[2025-02-13] MEDS ORDERED: DEXAMETHASONE SOD INJ 4 MG/ML VIAL ONE (12:56)
[2025-02-13] MEDS ORDERED: MIDAZOLAM HCL 1 MG/ML 2ML VIAL ONE (12:56)
[2025-02-13] MEDS ORDERED: LIDOCAINE 2% 2 ML VIAL/AMP(20MG/ML) INFIL ONE (12:56)
[2025-02-13] MEDS ORDERED: ONDANSETRON INJ 2 MG/ML 2 ML VIAL ONE (12:56)
[2025-02-13] MEDS ORDERED: PROPOFOL IV EMULSION 10 MG/ML 20 ML VIAL IV ONE (12:56)
--- NOTE | 2025-02-13 13:40 | Anesthesiology Consultation ---
Date of Service February 13, 2025 Assessment & Plan (1) Encounter for pre-operative examination: Chart Review Chart Review: Acceptable Risk for Surgery and Patient NOT seen in Pre Admission Testing Consults Requested none History Surgery Operation Date: 02/13/25 07:45 Proposed Procedures p Cystoscopy Left Ureteral Stent Placement - Ortiz Knapp MD Height/Weight Height: 6 ft 4 in Weight: 89.9 kg Allergies Allergy/AdvReac Type Severity Reaction Status Date / Time house dust Allergy Severe asthma Verified 02/12/25 20:08 attack chlorhexidine Allergy Intermediate hives/blist Verified 02/12/25 20:08 ers/rash ragweed pollen Allergy Intermediate itchy Verified 02/12/25 20:08 eyes, sneezing, congestion, asthma metoclopramide AdvReac Intermediate Tremors-arms Verified 02/12/25 20:08 & hands Medications Home Medications Medication Instructions Recorded Confirmed Last Taken aspirin 81 mg tablet,delayed 81 mg PO DAILY #90 tabs 02/25/19 02/12/25 02/12/25 release (Adult Low Dose Aspirin) ondansetron HCl 8 mg tablet 8 mg PO TID PRN nausea and 02/25/19 02/12/25 Unknown vomiting #10 tabs cetirizine 10 mg capsule (Zyrtec) 10 mg PO DAILY PRN Congestion 12/10/20 02/12/25 Unknown esomeprazole magnesium 20 mg 20 mg PO DAILY 12/10/20 02/12/25 02/12/25 capsule,delayed release (Nexium) rizatriptan 5 mg tablet 5 mg PO DIRECTED PRN Migraine 12/10/20 02/12/25 Unknown Headache buspirone 5 mg tablet 7.5 mg PO BID 09/25/23 02/12/25 02/12/25 08:00 tadalafil 5 mg tablet 5 mg PO DAILY PRN Sexual Activity 09/25/23 02/12/25 Unknown adalimumab-adaz 40 mg/0.4 mL 40 mg subcut WK 02/12/25 02/12/25 02/09/25 subcutaneous pen injector (Hyrimoz(CF) Pen) amoxicillin 875 mg-potassium 1 tab PO BID 02/12/25 02/12/25 02/12/25 08:00 clavulanate 125 mg tablet dapsone 5 % topical gel 1 applic topical DAILY 02/12/25 02/12/25 02/12/25 dicyclomine 10 mg capsule 10 mg PO TID 02/12/25 02/12/25 02/12/25 08:00 finasteride 1 mg tablet 1 mg PO QAM 02/12/25 02/12/25 02/12/25 galcanezumab-gnlm 120 mg/mL 120 mg subcut MONTHLY 02/12/25 02/12/25 01/16/25 subcutaneous pen injector (Emgality Pen) methylphenidate HCl 30 mg biphasic 30 mg PO QAM 02/12/25 02/12/25 02/12/25 50-50 capsule,extended release multivitamin,tx-minerals 1 tab PO DAILY 02/12/25 02/12/25 02/12/25 prednisone 20 mg tablet 0 mg PO DAILY PRN CLUSTER HEADACHES 02/12/25 02/12/25 02/12/25 40 MG tamsulosin 0.4 mg capsule 0.4 mg PO QAM 02/12/25 02/12/25 02/12/25 verapamil 80 mg tablet 80 mg PO TID 02/12/25 02/12/25 02/12/25 08:00 Active Medications Generic Name Dose Route Start Last Admin Trade Name Freq PRN Reason Stop Dose Admin Acetaminophen 650 mg 02/13/25 00:25 02/13/25 08:05 Acetaminophen 325 Mg Tab PO 03/15/25 00:24 650 mg Q4H PRN Administration pain/fever Hydromorphone HCl 0.25 mg 02/13/25 00:25 02/13/25 00:56 Hydromorphone Inj 0.5 Mg/0.5 Ml Syr IV 02/27/25 00:24 0.25 mg Q4H PRN Administration Moderate Pain (Scale 4, 5, 6) Sodium Chloride 1,000 mls @ 125 mls/hr 02/13/25 00:25 02/13/25 08:36 Nss IV 02/16/25 00:24 125 mls/hr .Q8H FEDER[place] Administration Past Medical History Medical History GERD (gastroesophageal reflux disease) Gastroparesis Social History Smoking Status: Never smoker Do You Dip or Chew Tobacco: No Hx Alcohol Use: No alcohol intake frequency: holidays/special occasions only Hx Substance Use: No substance use type: does not use Physical Exam Vital Signs Last Vital Signs Temp 98.1 F 02/13/25 06:57 Pulse 80 02/13/25 06:57 Resp 16 02/13/25 06:57 BP 144/77 H 02/13/25 06:57 Pulse Ox 95 02/13/25 06:57 O2 Del Method Room Air 02/13/25 06:57 Testing Laboratory Results 02/12/25 19:15 02/12/25 19:15 Urine Color Yellow 02/12/25 20:54 Urine Appearance Clear (Clear) 02/12/25 20:54 Urine pH 6.0 (4.5-7.5) 02/12/25 20:54 Ur Specific [place] 1.041 (1.000-1.030) H 02/12/25 20:54 Urine Protein 1+ (Negative) H 02/12/25 20:54 Urine Glucose (UA) Negative (Negative) 02/12/25 20:54 Urine Ketones Trace (Negative) H 02/12/25 20:54 Urine Nitrite Negative (Negative) 02/12/25 20:54 Ur Leukocyte Esterase Negative (Negative) 02/12/25 20:54 Urine WBC (Auto) 0-5 /hpf (0-5) 02/12/25 20:54 Urine RBC (Auto) >20 /hpf (0-2) H 02/12/25 20:54 U Hyaline Cast (Auto) 0-2 /lpf (0-2) 02/12/25 20:54 U Epithel Cells (Auto) 0-2 /hpf (0-2) 02/12/25 20:54 Urine Bacteria (Auto) None Seen (None Seen) 02/12/25 20:54
--- NOTE | 2025-02-13 13:47 | Hospitalist Progress Note ---
Date of Service February 13, 2025 Assessment & Plan (1) Left renal stone: Plan: 39-year-old male with past medical history significant for deviated nasal septum, history of mitral valve prolapse, gastroparesis, GERD, migraine, chronic cluster headaches, anxiety presents with left renal colic. Patient noticed left flank pain since last Monday. Pain is radiating to his groin region. Patient was seen by urgent care on 02/11/2025 and was given prophylactic antibiotics and Flomax and also renal ultrasound was done. Augmentin was given for sinusitis. Renal ultrasound was done and seems showed kidney stones and advised to follow- up with PCP. As the pain was not getting better and today it was 10/10 in severity associated with nausea which prompted him to come to the ER. Denies any fevers. Having hematuria. Has some discomfort while micturating. Normal bowel movements. Denies any chest pain or shortness of breath. No headache. No runny nose or sore throat. Currently resting comfortably and hemodynamically stable. Left renal calculi Left hydronephrosis and hydroureter Ongoing left flank pain CT abdomen pelvis showing 4x4.2 mm obstructing calculus proximal left ureter with associated left hydronephrosis and hydroureter UA negative for UTI Hemodynamically stable Pain control, IV fluids, flomax, antiemetics N.p.o. Urine strainer Urology consult - appreciate recs, planning for stent placement today unless has substantial improvement or passage of the stone prior to procedure. History of migraines History of cluster headaches Continue home medications History of hidradenitis suppurativa On adalimumab GERD on omeprazole History of mitral valve prolapse S/p repair On aspirin Anxiety On buspirone DVT prophylaxis : SCDs Lines: PIV x 1 Diet: NPO until stent procedure, afterwards can have regular diet Full code A total of 35 minutes were spent with greater than 50% of that time face to face with the patient, personally reviewing all current laboratories, imaging studies, past medication reconciliation, outpatient chart review, and discussion with specialists to collaborate care for the patient with attending. Please see attending documentation for corrections and/or additions. Admission and Anticipated Discharge Date Admission Date: February 12, 2025 Supervising Physician Co-Signing Physician Notes Patient seen and examined Agree with findings and plan as detailed by Shantell Duncan PA-C Subjective Patient seen and examined this morning. He reports having lower left-sided abdominal pain rated 4/10. Denies any nausea, vomiting. He is n.p.o. in anticipation of left ureteral stent placement. Denies any fevers, chills or sweats. Last bowel movement was yesterday. 10 point ROS reviewed and otherwise negative. Physical Exam Physical Exam: General: awake, alert, no apparent distress, white male Head: Normocephalic, atraumatic ENT: PERRL, EOMI, no pharyngeal exudate, mucous membranes moist Chest: Clear to auscultation, on room air, no adventitious breath sounds Cardiac: Regular rate and rhythm, no murmur, no JVD, normal peripheral pulses, good capillary refill Abdominal: NABS x 4 quadrants, soft, nondistended, + minimally tender LLQ to palpation, no rebound or guarding Extremities: Normal inspection, no peripheral edema or erythema, calfs nontender to palpation Psych: Normal mood and affect Neuro: AAO x 3, strength intact bilaterally and rated 5/5, no motor deficits, speech is clear, no peripheral sensory deficits Results & Data Results & Data Vital Signs (Past 12 Hours) Vital Signs Temp Pulse Resp BP Pulse Ox O2 Del Method 02/13/25 06:57 36.7 C 80 16 144/77 H 95 Room Air
[2025-02-13] MEDS: ASPIRIN 81 MG ECTAB PO SCH (14:56)
[2025-02-13] MEDS: AMOXICILLIN/CLAVULANATE 875 MG TAB PO SCH (14:56)
[2025-02-13] MEDS: DICYCLOMINE HCL 10 MG CAP PO SCH (14:57)
[2025-02-13] MEDS: CEROVITE ADV FORMULA TAB PO SCH (14:57)
[2025-02-13] MEDS: TAMSULOSIN HCL 0.4 MG CAP PO SCH (14:57)
[2025-02-13] MEDS: VERAPAMIL HCL 40 MG TAB PO SCH (14:57)
[2025-02-13] MEDS ORDERED: ATROPINE SULFATE 0.1 MG/ML 10ML SYR IV PRN (15:38)
[2025-02-13] MEDS: CIPROFLOXACIN / D5W 400 MG/200 ML BAG IV SCH (15:49)
[2025-02-13] MEDS ORDERED: KETAMINE HCL 10MG/ML SYR ONE (15:52)
--- NOTE | 2025-02-13 16:15 | Operative Report ---
PG Post Operative Report Pre & Post Diagnosis Operation Date: 02/13/25 07:45 Pre-Op Diagnosis: Left kidney stone Post-Op Diagnosis: Left kidney stone I identified the patient and participated in the time-out.: Yes Procedure Operation Date: 02/13/25 07:45 Actual Procedures p Cystoscopy, Left retrograde pyelogram, Left Ureteral Stent Placement(Left) - Ortiz Knapp MD Surgeon Ortiz Knapp MD Pinset[employer] Mechan[employer] Helper none Estimated Blood Loss 0 Findings Consistent with Post-Op Diagnosis Specimens none Description of Procedure The patient was identified in the preoperative holding area, appropriate informed consents were reviewed and completed and the patient was transferred to the operative suite. Upon arrival, appropriate antibiotics and anesthesia were administered and the patient was placed in dorsal lithotomy position and prepped and draped in sterile fashion. To begin the case I passed a 21 Ghanaian cystoscope with 30 degree lens. Inspection revealed a healthy appearing bladder and ureteral orifices in orthotopic position. I cannulated the left UO and wire advanced the kidney without difficulty. Immediately upon passing the stone there was a discharge of old urine from the left UO. I proceeded to place a 6 Ghanaian by 26 Demeter double-J stent significant curl in the kidney as well as the bladder. There was good drainage through and around the stent. We then concluded the case and he was reversed of anesthesia and taken to the recovery room in stable condition. There were no complications. We will plan for her to return in 1 to 2 weeks for definitive stone treatment. Stable for discharge home now. I attest to the content of the Intraoperative Record and any orders documented therein. Any exceptions are noted below.
--- NOTE | 2025-02-13 16:42 | Anesthesiology Progress Note ---
Date of Service February 13, 2025 Anesthesia Post Procedure Vital Signs Vital Signs: Temp Pulse Pulse Pulse Pulse Resp BP 02/13/25 16:30 36.5 C 58 L 16 02/13/25 16:20 60 14 02/13/25 16:12 36.2 C L 88 14 02/13/25 15:24 36.6 C 59 L 18 02/13/25 15:16 36.7 C 58 L 16 02/13/25 06:57 36.7 C 80 16 02/13/25 00:15 02/13/25 00:15 36.5 C 54 L 16 02/13/25 00:11 54 L 16 146/88 H 02/13/25 00:11 54 L 16 02/12/25 23:30 53 L 16 02/12/25 21:00 16 02/12/25 19:13 02/12/25 19:05 36.6 C 70 18 151/92 H BP Pulse Ox O2 Del Method O2 Flow Rate 02/13/25 16:30 142/89 H 95 Room Air 02/13/25 16:20 151/90 H 99 Oxymask 4 02/13/25 16:12 146/86 H 98 Oxymask 6 02/13/25 15:24 147/84 H 96 Room Air 02/13/25 15:16 164/94 H 99 Room Air 02/13/25 06:57 144/77 H 95 Room Air 02/13/25 00:15 Room Air 02/13/25 00:15 156/87 H 98 Room Air 02/13/25 00:11 99 Room Air 02/13/25 00:11 146/88 H 99 Room Air 02/12/25 23:30 156/98 H 96 Room Air 02/12/25 21:00 150/87 H 98 02/12/25 19:13 Room Air 02/12/25 19:05 96 Room Air Pain Intensity Flank: Pain Intensity: 5 Transfer of Care Handoff Completed per policy Notes Mental Status: alert / awake / arousable and participated in evaluation Patient Amnestic to Procedure: Yes Nausea / Vomiting: adequately controlled Pain: adequately controlled Airway Patency, RR, SpO2: stable & adequate BP & HR: stable & adequate Hydration State: stable & adequate Anesthetic Complications: no major complications apparent and Pt Satisfied with anesthetic care
[2025-02-13] MEDS: CIPROFLOXACIN 400MG / 200ML D5W IV ONE (17:44)
[2025-02-14 03:16] VITALS: BP 129/78; PULSE 60; RESP 18; TEMP 97.7; O2SAT 97
[2025-02-14] MEDS ORDERED: PHENAZOPYRIDINE HCL 100 MG TAB PO PRN (05:20)
--- NOTE | 2025-02-14 06:56 | Fluoroscopy Report ---
FL KUB CLINICAL HISTORY: LT STENTstatus post placement of a left ureteral stent COMPARISON STUDY: 02/12/2025 FLUOROSCOPY TIME: 4.4 seconds FLUOROSCOPY IMAGES: 1 EXPOSURE DOSE: 0.88 mGy FINDINGS: Proximal portion of a left ureteral stent is in satisfactory positioning, the distal portio n was not imaged. IMPRESSION: Fluoroscopic assistance as above. ACT 112: Negative or not required by law. Electronically signed by: Teofilo Nance M.D. 02/14/2025 6:54 AM
--- NOTE | 2025-02-14 08:27 | Urology Progress Note ---
Date of Service February 14, 2025 Assessment & Plan (1) Calculi, ureter: (2) Acute flank pain: Plan: - Pt POD#1 s/p cystoscopy and left ureteral stent placement - Afebrile with stable vitals - No new labs at time of visit today - Tolerating left ureteral stent better this morning - Recommend continue tamsulosin, pyridium and consider addition of oxybutynin for stent management- continue at discharge - Okay to d/c from perspective when medically stable - Expected clinical course reviewed, all questions answered - Will arrange outpatient follow-up with our service to set up definitive stone treatment - will sign off, please contact our service with any additional questions or concerns Admission and Anticipated Discharge Date Admission Date: February 12, 2025 Subjective Patient seen and examined at bedside this morning. He is awake and resting in bed. He was hopeful for discharge yesterday evening, but had an increase of flank pain with walking. Feeling better this morning. Notes left flank discomfort with voiding. Denies nausea, vomiting, fever or chills. Review of Systems Constitutional: as per Subjective / HPI Genitourinary: + as per Subjective / HPI Physical Exam Constitutional: well developed and well nourished; no acute distress Respiratory: normal respiratory effort; no respiratory distress and no labored breathing Gastrointestinal (Abdomen): Inspection/Auscultation: abdomen normal to inspection Musculoskeletal: Head/Neck/Chest: normocephalic Neurologic: moves all extremities and awake Psychiatric: Orientation: alert and oriented x 3 Results & Data Vital Signs (Past 12 Hours) Vital Signs Temp Pulse Resp BP Pulse Ox O2 Del Method 02/14/25 03:15 36.5 C 60 18 129/78 97 Room Air 02/14/25 00:11 36.7 C 56 L 17 133/78 96 Room Air PG Care Time/CCT Total # of Minutes Spent Total Time Spent with Patient: Total time spent is greater than 50% in coordination of care (as documented) at patient's floor/unit and/or counseling patient: Coding Level of Care Code 32824 SUB INP/OBS CARE 05/18MIN Diagnoses Calculi, ureter N20.1 Acute flank pain R10.A0
--- NOTE | 2025-02-14 09:22 | Discharge Summary ---
Date of Service February 14, 2025 Admission HPI Per Admitting Provider 39-year-old male with past medical history significant for deviated nasal septum, history of mitral valve prolapse, gastroparesis, GERD, migraine, chronic cluster headaches, anxiety presents with left renal colic. Patient noticed left flank pain since last Monday. Pain is radiating to his groin region. Patient was seen by urgent care on 02/11/2025 and was given prophylactic antibiotics and Flomax and also renal ultrasound was done. Augmentin was given for sinusitis. Renal ultrasound was done and seems showed kidney stones and advised to follow- up with PCP. As the pain was not getting better and today it was 10/10 in severity associated with nausea which prompted him to come to the ER. Denies any fevers. Having hematuria. Has some discomfort while micturating. Normal bowel movements. Denies any chest pain or shortness of breath. No headache. No runny nose or sore throat. Currently resting comfortably and hemodynamically stable. Past medical history. As mentioned above. Past surgical history. Colonoscopy with biopsy. EGD. Appendectomy. Repair of nasal stenosis. Revision of spermatic cord veins. Social history. No smoking. Alcohol occasionally. No drug use. Family history. Father has asthma. Hypertension. Mother has colitis. Migraine. Admission Exam Per Admitting Provider Physical Exam Physical Exam: General- Not in distress Head- atraumatic Eyes- PERRL. ENT- oropharynx clear Neck- supple, no JVD. Lungs- clear to auscultation no wheezing or crackles Heart- regular rhythm; no murmur, no gallop. Abdomen- normal bowel sounds, soft, nontender, no distension Extremities- no pretibial edema, no erythema seen Neuro- alert, oriented PERRL, no facial palsy; no dysarthria; moves extremities Principal Diagnosis Left obstructing renal calculous causing hydronephrosis Discharge Exam General: awake, alert, no apparent distress, white male Head: Normocephalic, atraumatic ENT: PERRL, EOMI, no pharyngeal exudate, mucous membranes moist Chest: Clear to auscultation, on room air, no adventitious breath sounds Cardiac: Regular rate and rhythm, no murmur, no JVD, normal peripheral pulses, good capillary refill Abdominal: NABS x 4 quadrants, soft, nondistended, no rebound or guarding. +Minimal tenderness with palpation in the LLQ. Extremities: Normal inspection, no peripheral edema or erythema, calfs nontender to palpation Psych: Normal mood and affect Neuro: AAO x 3, strength intact bilaterally and rated 5/5, no motor deficits, speech is clear, no peripheral sensory deficits Discharge Data Allergies Allergy/AdvReac Type Severity Reaction Status Date / Time house dust Allergy Severe asthma Verified 02/12/25 20:08 attack chlorhexidine Allergy Intermediate hives/blist Verified 02/12/25 20:08 ers/rash ragweed pollen Allergy Intermediate itchy Verified 02/12/25 20:08 eyes, sneezing, congestion, asthma metoclopramide AdvReac Intermediate Tremors-arms Verified 02/12/25 20:08 & hands Consultations 02/12/25 22:23 ED Decision to Admit Stat 02/13/25 08:00 Consult Urology Routine Procedures Performed Operation Date: 02/13/25 07:45 Actual Procedures p Cystoscopy, Left retrograde pyelogram, Left Ureteral Stent Placement(Left) - Ortiz Knapp MD Ordered Studies 02/12/25 20:02 CT Abd and Pelvis [CT abd pelvis IV con only] Stat 02/13/25 FL KUB Routine Hospital Course (1) Left renal stone: 39-year-old male with past medical history significant for deviated nasal septum, history of mitral valve prolapse, gastroparesis, GERD, migraine, chronic cluster headaches, anxiety presents with left renal colic. Patient noticed left flank pain since 02/03/25. Pain is radiating to his groin region. Patient was seen by urgent care on 02/11/2025 and was given prophylactic antibiotics and Flomax and also renal ultrasound was done. Augmentin was given for sinusitis. Renal ultrasound was done and seems showed kidney stones and advised to follow- up with PCP. As the pain was not getting better and today it was 10/10 in severity associated with nausea which prompted him to come to the ER. Afebrile without leukocytosis. Has some discomfort while micturating. Normal bowel movements. Denies any chest pain or shortness of breath. No headache. No runny nose or sore throat. Currently resting comfortably and hemodynamically stable. CT abdomen pelvis showing 4x4.2 mm obstructing calculus proximal left ureter with associated left hydronephrosis and hydroureter Pt underwent ureteral stent placement by urology, Dr. Knapp on 02/13/25. Tolerated the procedure well. Will continue on flomax, pyridium and oxybutinin for urinary cramping/spasms. Follow up is being arranged for stent removal by urology. Pt is stable for dc home. Total Time Total Time Spent Total Time Spent (In Minutes): 35 Discharge Plan Discharge Items Patient Disposition: Home - Self-Care Reason For Visit: LEFT RENAL COLIC Discharge Diagnosis: left renal colic Condition on Discharge: Good Activity: Resume your previous activity Lifting: Gradually increase as tolerated Bathing: No limitations Sexual Activity: When tolerated Exercise/Sports: Gradually increase as tolerated Driving/Machine Use: Resume 1 day after discharge Non-emergency contact: Urologist Call non-emergency contact if: you have any medication questions, your pain is concerning for you, you have a fever and your temperature is above 101.5 Follow-up/Referrals: Ortiz Knapp MD [Physician] - Carlos Trevino DO [Primary Care Provider] - (Date & Time 02/20/2025 1:00 PM Provider: Mary Merlos PA-C [facility] ) Diet: Regular Addtl Attending Provider Instructions: You were admitted to [facility] due to abdominal cramping and diagnosed with obstructing ureteral stone causing hydronephrosis. During your stay here you were treated with supportive care, medications including antispasmodics, pain medications, and IV fluids. You underwent u reteral stent placement on 02/13/[address] Yemi Banerjee and your symptoms improved. You will have scheduling planned by urology for stent removal within 4-6 weeks. Imaging studies which were completed include CT abd/pelvis, and were abnormal showing a left sided 4 x 4 mm obstructing calculous. Medications: Continue taking you medications as prescribed New prescriptions for pyridium, oxybutinin and flomas are prescribed to you for urinary cramping/pain in the setting of having a stent placed. Appointments: Follow up with PCP within 1 week, an appointment has been requested for you. Urology will contact you for follow up within next few days. If you do not hear from their office within 1 week, please call [facility] and request follow up. Per Urology: While having a ureteral stent in position, it is normal to experience some dysuria (burning), as well as some left flank pain when urinating. Having blood in your urine is also expected and will likely increase as you increase activities. Please stay well-hydrated and this should dilute the blood. There is no need to restrict your activities as long as you feel well performing them. You can eat a normal diet. Dr. Knapp's office will be in touch with you to schedule your next procedure. Pending Studies at Discharge: No Stand-Alone Forms: My [facility] [employer], Work/School Release, Smoking Cessation Medications and DC Order Prescriptions: New tramadol 50 mg tablet 50 mg PO Q6H PRN (Reason: pain) Qty: 20 0RF oxybutynin chloride 5 mg tablet 5 mg PO DAILY Qty: 7 0RF phenazopyridine [Pyridium] 200 mg tablet 200 mg PO Q8H PRN (Reason: pain) Qty: 8 0RF Continued buspirone 5 mg tablet 7.5 mg PO BID tadalafil 5 mg tablet 5 mg PO DAILY PRN (Reason: Sexual Activity) rizatriptan 5 mg tablet 5 mg PO DIRECTED PRN (Reason: Migraine Headache) Rx Instructions: do not exceed 6 doses per 24 hrs esomeprazole magnesium [Nexium] 20 mg capsule,delayed release(DR/EC) 20 mg PO DAILY Zyrtec 10 mg capsule 10 mg PO DAILY PRN (Reason: Congestion) aspirin [Adult Low Dose Aspirin] 81 mg tablet,delayed release (DR/EC) 81 mg PO DAILY Qty: 90 3RF ondansetron HCl 8 mg tablet 8 mg PO TID PRN (Reason: nausea and vomiting) Qty: 10 0RF prednisone 20 mg Tablet 0 mg PO DAILY PRN (Reason: CLUSTER HEADACHES) Rx Instructions: TAKE 60 MG AT ONSET OF HEADACHE, THEN 40 MG X 2 DAYS, THEN 20 MG X 2 DAYS. STARTED 02/11/25 tamsulosin 0.4 mg capsule 0.4 mg PO QAM verapamil 80 mg tablet 80 mg PO TID dicyclomine 10 mg capsule 10 mg PO TID finasteride 1 mg tablet 1 mg PO QAM amoxicillin-pot clavulanate 875-125 mg tablet 1 tab PO BID Rx Instructions: STARTED 02/11/25 FOR 10 DAYS multivitamin,tx-minerals Tablet 1 tab PO DAILY methylphenidate HCl 30 mg capsule,ER biphasic 50-50 30 mg PO QAM dapsone 5 % gel 1 applic TOPICAL DAILY Emgality Pen 120 mg/mL pen injector 120 mg SUBCUT MONTHLY Rx Instructions: TAKES ON THE THE . adalimumab-adaz [Hyrimoz(CF) Pen] 40 mg/0.4 mL pen injector 40 mg SUBCUT WK Rx Instructions: SUNDAYS Discharge Orders: Discharge Order (Routine); Ordered 02/14/25 Ordered By: Shantell Duncan Admission Data Admit Date/Time: 02/12/25 23:09 Attending Provider: Zoie Hoffman I. Admit Provider: Fran Whitaker Primary Care Provider: Carlos Trevino Other Providers: Fran Whitaker; Ortiz Knapp; Michelle Mondragon; Victor M Gee; Jazmyn Cano; Rachael Quiros; Sher Henderson; Janna Leigh; Cal Bey; Sohan Hargrove; Blas Tolentino; Arya Paula Other Interventions: Discharge Summary Assessment (RN) Last Done: 02/14/25 10:03
[2025-02-14 09:30] LABS: Hematocrit (blood only) 44.3 % (42.0-52.0); Hemoglobin 14.8 g/dl (14.0-18.0); Mean Corpuscular Hemoglobin 29.5 pg (25.0-34.0); Mean Corpuscular Volume 88.2 fL (80.0-100.0); Platelet Count 206 K/uL (130-400); RDW Standard Deviation 42.1 fL (36.4-46.3); Red Blood Count 5.02 M/uL (4.70-6.10); White Blood Count 12.38 K/ul (4.8-10.8)
[2025-02-14 09:44] LABS: Anion Gap 6.0 (3-11); Blood Urea Nitrogen 12.0 mg/dl (6-23); Calcium 8.6 mg/dl (8.6-10.3); Carbon Dioxide 29.0 mmol/L (21-32); Chloride 105.0 mmol/L (98-107); Creatinine Clr Calc Pharmacy 98.0 ml/min; Glucose 109.0 mg/dl (70-99(Fasting)); Potassium 3.4 mmol/L (3.5-5.1); Sodium 140.0 mmol/L (136-145)
[2025-02-14] MEDS: PHENAZOPYRIDINE HCL 200 MG TAB PO STA (09:44)
== END 2025-02-14 10:34 | disposition home or self-care (01) | DRG 661 ==
LOC: ED 18:50 → 3N 23:09